=== PATIENT | female | born 1960 | race Asian ===

== ENCOUNTER → 2017-11-14 | Outpatient (REF) | payer OTHER ==
[2017-11-14 20:53] LABS: C REACTIVE PROTEIN QUANTITATIV < 0.30 MG/DL (0.00-0.30); RHEUMATOID FACTOR QUANT < 10.0 IU/ML (<15.0)
[2017-11-14 20:53] LABS: ANTI-STREPTOLYSIN O QUANT 38.7 IU/ML (<214.0)
[2017-11-14 20:58] LABS: ERYTHROCYTE SEDIMENTATION RATE 18 mm/hr (0-30)
[2017-11-17 14:19] LABS: ANTINUCLEAR ANTIBODIES DIRECT Negative (Negative)
== END ==
LOC: M SFHCLERA 17:49
DX: M79.641 Pain in right hand (principal)
CPT/HCPCS: 86140